=== PATIENT | female | born 1950 | race Caucasian/White ===

== ENCOUNTER 2024-06-08 10:22 | Emergency (ER) | payer MEDICARE, OTHER, SELFPAY ==
--- NOTE | ~2024-06-08 | XR_ITS ---
EXAMINATION: XR CHEST CLINICAL INFORMATION: Congested cough for 4 days. Shortness of breath and exam room. COMPARISON: None available. TECHNIQUE: 2 views of the chest were obtained. FINDINGS: No significant abnormality is noted involving the heart, lungs, or mediastinum. Mild degenerative changes of the spine. Status post laparoscopic adjustable gastric band placement. XR/XR chest 2V IMPRESSION: Unremarkable examination. Electronically signed by: Morales Lee MD 06/08/2024 11:45 AM EDT
[2024-06-08 10:31] VITALS: PULSE 92; RESP 20; TEMP 37; O2SAT 96; BMI 43.0
--- NOTE | 2024-06-08 10:51 | ED_ITS ---
HPI - URI/Sore Throat General Chief Complaint: Upper Respiratory Symptoms Stated Complaint: cough,congestion,sob Time Seen by Provider: 06/08/24 10:50 Source: patient and family Mode of arrival: ambulatory Limitations: no limitations History of Present Illness HPI Narrative: 73-year-old female with a past medical history of diabetes presents to the emergency department, with her , for concerns for cough and nasal congestion for the last several days. Patient reports she has had green sputum and shortness of breath when coughing. She denies any fevers, chills, chest or abdominal pain, nausea, vomiting, headache, vision changes, dizziness. She reports she has been using [id number] Delsym with moderate relief of symptoms but is concerned that the medication is increasing her blood sugars. Pertinent positives and negatives discussed in HPI Related Data Previous Rx's ?Medication ?Instructions ?Recorded benzonatate 200 mg capsule 200 mg PO TID PRN cough #14 caps 06/08/24 Allergies Allergy/AdvReac Type Severity Reaction Status Date / Time No Known Allergies Allergy Verified 06/08/24 10:35 Review of Systems Review of Systems: Yes all other systems are reviewed and are negative [facility] Social History Social History Advance Directives: No Advance Directives Information Provided: No Physical Exam Vital Signs: Vital Signs: Last Vital Signs Temp 98.6 F 06/08/24 12:22 Pulse 92 06/08/24 12:22 Resp 20 06/08/24 12:22 BP 00/00 L 06/08/24 12:22 Pulse Ox 96 06/08/24 12:22 O2 Del Method Room Air 06/08/24 12:22 BMI result Body Mass Index 43.0 Nursing notes and vital signs reviewed. GENERAL APPEARANCE: A&0 x 4, generally well appearing, no acute distress HENMT: Normal to inspection, atraumatic, face symmetrical. Normal external ears, nose, and oropharynx clear. EYE: PERRLA, EOM intact, structures appear normal NECK: Supple without stiffness or restricted ROM. HEART: Normal rate and regular rhythm, normal S1/S2, no M/R/G LUNGS: LS CTA, moving air well. Able to speak in complete sentences. No crackles, wheezes, or rhonchi auscultated BACK: No CVAT, no obvious deformity EXTREMITIES: Moving all extremities without difficulty. Normal capillary refi ll. NEUROLOGICAL: Alert and oriented, moving all 4 extremities with equal strength. CN not formally tested but appearing grossly intact. Observed to ambulate with normal gait. Cognition normal SKIN: Warm and dry without any lesions, rash, or visible sores Medical Decision Making Medical Decision Making [facility] Narrative: Old records reviewed for previous imaging, lab studies, ECGs, and notes. Patient was assessed the emergency department with no acute distress or toxicity noted. Nasal serology was completed which was negative for COVID. Based on patient's complaints she was sent for chest x-ray which, per my interpretation showed no evidence of acute findings. Patient's symptoms are consistent with an upper respiratory infection an educated to continue use of [id number] medications for further management. Evelin Soto and patient preferred pharmacy for management of cough. Patient is safe for discharge at this time with plan for [id number] Tylenol and/or NSAID such as ibuprofen or naproxen for fever/discomfort with dosing as per packaging. HPI, PE, diagnosti cs, and plan discussed with patient and family with no unanswered questions at this time. Strict return precautions given to return to the emergency department with new, worsening, or concerning emergent symptoms. Recommended to follow-up with there primary care provider in 24-48 hours for further treatment and management. Differential Diagnosis Differential Diagnoses: The differential diagnosis associated with the presentation includes But not limited to viral upper respiratory infection, bronchitis, pneumonia, COPD, ACS, PE, sepsis, malignancy Lab Data [facility] Lab Attestation statement: I reviewed the patient's lab results. Labs: Lab Results 06/08/24 Range/Units 10:42 COVID-19 ([facility]) Negative (Negative) COVID-19 Clin Com See Note Independent Interpretation I performed an independent interpretation of an: Plain X-Ray Interpretation: Negative for acute findings Independent Historian Clinical information obtained from an independent historian. History obtained from or confirmed by: Spouse External Record Review External record reviewed: Other Previous records Prescription Management I considered prescription management with: Antibiotic Antibiotics were considered, however; no evidence of bacterial infection was identified at this time Chronic Conditions Patient?s care impacted by: Diabetes Discharge Plan Discharge Clinical Impression: Upper respiratory infection Patient Disposition: Home, Self-Care Instructions: Upper Respiratory Infection (ED), Viral Syndrome (ED) Prescriptions: New benzonatate 200 mg capsule 200 mg PO TID PRN (Reason: cough) Qty: 14 0RF Referrals: Zachary Cintron MD [Primary Care Provider] - Interventions: ED Discharge Assessment Last Done: 06/08/24 12:22 Discharge Date/Time: 06/08/24 12:22 Print Language: Syriac
[2024-06-08 11:04] LABS: COVID-19 Test Negative (Negative); IDNOW Serial# 08D9AD1C
[2024-06-08 12:22] VITALS: BP 00/00; PULSE 92; RESP 20; TEMP 37; O2SAT 96
== END 2024-06-08 12:22 | disposition home or self-care (01) ==
PROVIDERS: Emergency Provider Student in an Organized Health Care Education/Training Program; PCP Internal Medicine
DX: J06.9 Acute upper respiratory infection, unspecified (principal); R05.9 Cough, unspecified; Z11.52 Encounter for screening for COVID-19; R06.02 Shortness of breath; E11.9 Type 2 diabetes mellitus without complications
CPT/HCPCS: 71046; 87635; 99282; 99283

== ENCOUNTER → 2024-09-10 15:58 | Outpatient (BNV) | payer MEDICARE, OTHER, SELFPAY | PROVIDERS: PCP Internal Medicine; Visit Provider Radiology Diagnostic Radiology | DX: M54.2 Cervicalgia (principal); M25.511 Pain in right shoulder; M25.561 Pain in right knee; M25.562 Pain in left knee; R51.9 Headache, unspecified | CPT/HCPCS: 70450; 72125; 73030; 73564 ==